=== PATIENT | female | born 1990 | race Hispanic/Latino ===

== ENCOUNTER 2016-12-24 15:18 | Emergency (ER) | payer BC ==
[~2016-12-24] VITALS: Ht 160 cm; Wt 90.9 kg
[~2016-12-24 15:18] MED LIST: AMOXICILLIN/PO500 MG PO; AMOXICILLIN500 M1 OR; AMOXICILLIN500 MG PO; BIAXIN500 MG OR; CLARITIN10 M1 PO; LORTAB 7.5 PO; NO HOME MEDS; PERCOCET 5/325M1 TAB OR; PRENATA5 OR; PREVACID30 M1 OR; PREVACID30 M2 PO; PROTONIX40 MG OR; SOLU-MEDROL125 MG IM; ULTRAM50 M1 PO
[2016-12-24 15:49] LABS: HEMATOCRIT 42.4 % (37.0-47.0); HEMOGLOBIN 13.5 g/dl (12.0-16.0); IMMATURE GRANULOCYTES 0.2 % (0.0-1.0); MEAN CELL VOLUME 84.1 fL CALC (80.0-100.0); MEAN CORPUSCULAR HGB 26.8 pG CALC (26.0-32.0); MEAN CORPUSCULAR HGB CONC 31.8 g/L CALC (32.0-36.0); NEUT# 5.51 thou/uL (2.00-7.15); RED BLOOD COUNT 5.04 mill/uL (4.20-5.60); RED CELL DISTRI WIDTH 13.2 % (11.5-15.5)
[2016-12-24 16:29] LABS: ALBUMIN 4.3 g/dL (3.2-5.0); ALKALINE PHOSPHATASE 92 u/l (38-126); ANION GAP 17 (6-22 (CALC)); BILIRUBIN, TOTAL 0.3 mg/dL (0.0-1.4); BUN 13 mg/dL (7-17); BUN/CREATININE RATIO 19 (12-20 (CALC)); CALCIUM 9.6 mg/dL (8.4-10.2); CARBON DIOXIDE 28 mmol/l (22-30); CHLORIDE 102 mmol/l (95-108); CREATININE 0.7 mg/dL (0.5-1.0); GFR > 60 ML/MIN (>=60 (CALC)); GFR FOR AFR.AMER. > 60 ML/MIN (>=60 (CALC)); GLUCOSE 77 mg/dL (65-105); POTASSIUM 3.9 mmol/l (3.5-5.1); SGOT/AST 17 u/l (14-36); SGPT/ALT 29 u/l (9-52); SODIUM 143 mmol/l (137-146); TOTAL PROTEIN 8.2 g/dL (6.3-8.2)
[2016-12-24] MEDS ORDERED: BENADRYL 50MG C50 MG PO (16:33)
[2016-12-24] MEDS ORDERED: PREDNISONE10 MG PO (16:33)
[2016-12-24] MEDS ORDERED: CIMETIDINE400 M1 PO (16:33)
[2016-12-24 16:51] VITALS: BP 137/82
== END 2016-12-24 17:00 | disposition home or self-care (01) | DRG 918 ==
LOC: ED 15:18
PROVIDERS: Emergency Medicine
DX: T63.441A Toxic effect of venom of bees, accidental (unintentional), initial encounter (principal)

== ENCOUNTER 2017-04-17 03:09 | Emergency (ER) | payer BC ==
[~2017-04-17] VITALS: Ht 160 cm; Wt 118.2 kg
[~2017-04-17 03:09] MED LIST changes: +BENADRYL 50MG C50 MG PO; +CIMETIDINE400 M1 PO; +PREDNISONE10 MG PO
[2017-04-17] MEDS ORDERED: TRAMADOL HYDROC50 MG PO (03:43)
[2017-04-17] MEDS ORDERED: MOTRIN800 MG PO (03:43)
[2017-04-17] MEDS ORDERED: FLEXERIL PO (03:43)
[2017-04-17 04:50] VITALS: BP 126/84
== END 2017-04-17 04:53 | disposition home or self-care (01) | DRG 74 ==
LOC: ED 03:09
DX: M54.12 Radiculopathy, cervical region (principal)

== ENCOUNTER 2017-05-24 14:50 | Emergency (ER) | payer BC ==
[~2017-05-24] VITALS: Ht 160 cm; Wt 115.0 kg
[~2017-05-24 14:50] MED LIST changes: +FLEXERIL PO; +MOTRIN800 MG PO; +TRAMADOL HYDROC50 MG PO
[2017-05-24] MEDS ORDERED: BACTRIM DS1 TAB PO (15:09)
[2017-05-24] MEDS ORDERED: CEPHALEXIN500 M1 PO (15:09)
[2017-05-24 15:38] VITALS: BP 117/79
== END 2017-05-24 15:39 | disposition home or self-care (01) | DRG 603 ==
LOC: ED 14:50
DX: L03.113 Cellulitis of right upper limb (principal); T63.461A Toxic effect of venom of wasps, accidental (unintentional), initial encounter
CPT/HCPCS: J1335

== ENCOUNTER 2017-07-12 11:09 | Emergency (ER) | payer BC, MEDICAID ==
[~2017-07-12] VITALS: Ht 160 cm; Wt 116.0 kg
[~2017-07-12 11:09] MED LIST changes: +BACTRIM DS1 TAB PO; +CEPHALEXIN500 M1 PO
[2017-07-12] MEDS ORDERED: PRENATA7 PO (11:18)
[2017-07-12] MEDS ORDERED: PHENERGAN25 M1 PO (11:18)
[2017-07-12] MEDS ORDERED: FIORICET 50-3001 CAP PO (11:19)
[2017-07-12 12:21] LABS: HEMATOCRIT 38.6 % (37.0-47.0); HEMOGLOBIN 12.7 g/dl (12.0-16.0); IMMATURE GRANULOCYTES 0.4 % (0.0-1.0); MEAN CELL VOLUME 84.1 fL CALC (80.0-100.0); MEAN CORPUSCULAR HGB 27.7 pG CALC (26.0-32.0); MEAN CORPUSCULAR HGB CONC 32.9 g/L CALC (32.0-36.0); NEUT# 7.16 thou/uL (2.00-7.15); RED BLOOD COUNT 4.59 mill/uL (4.20-5.60); URINE BILIRUBIN - DIPSTICK NEGATIVE (NEGATIVE); URINE BLOOD DIPSTICK TRACE-INTACT (NEGATIVE); URINE CLARITY CLEAR; URINE COLOR YELLOW; URINE GLUCOSE - DIPSTICK NEGATIVE (NEGATIVE); URINE KETONE 40 mg/dL (NEGATIVE); URINE LEUK ESTERASE NEGATIVE (NEGATIVE); URINE NITRITE - DIPSTICK NEGATIVE (Negative); URINE PH 5.5 (4.5-8.0); URINE PROTEIN - DIPSTICK NEGATIVE (NEG-TRACE); URINE SPECIFIC GRAVITY >=1.030; URINE UROBILINOGEN - DIPSTICK 0.2 E.U./dL (0.2)
[2017-07-12 12:36] LABS: ALBUMIN 4.1 g/dL (3.2-5.0); ALKALINE PHOSPHATASE 84 u/l (38-126); ANION GAP 14 (6-22 (CALC)); BILIRUBIN, TOTAL 0.6 mg/dL (0.0-1.4); BUN 8 mg/dL (7-17); BUN/CREATININE RATIO 16 (12-20 (CALC)); CALCIUM 9.4 mg/dL (8.4-10.2); CARBON DIOXIDE 25 mmol/l (22-30); CHLORIDE 105 mmol/l (95-108); CREATININE 0.5 mg/dL (0.5-1.0); GFR > 60 ML/MIN (>=60 (CALC)); GFR FOR AFR.AMER. > 60 ML/MIN (>=60 (CALC)); GLUCOSE 89 mg/dL (65-105); SGOT/AST 17 u/l (14-36); SGPT/ALT 27 u/l (9-52); SODIUM 140 mmol/l (137-146); TOTAL PROTEIN 7.4 g/dL (6.3-8.2)
[2017-07-12 13:06] VITALS: BP 120/76
[2017-07-13] MEDS ORDERED: ANTIVERT12.5 MG PO (09:31)
== END 2017-07-12 13:09 | disposition home or self-care (01) | DRG 781 ==
LOC: ED 11:09
PROVIDERS: Emergency Medicine
DX: O26.891 Other specified pregnancy related conditions, first trimester (principal); H53.8 Other visual disturbances; R42 Dizziness and giddiness; R11.10 Vomiting, unspecified; Z3A.09 9 weeks gestation of pregnancy

== ENCOUNTER 2017-09-07 00:58 | Emergency (ER) | payer BC, MEDICAID ==
[~2017-09-07 00:58] MED LIST changes: +ANTIVERT12.5 MG PO; +FIORICET 50-3001 CAP PO; +PHENERGAN25 M1 PO; +PRENATA7 PO
== END 2017-09-07 01:00 | disposition left against medical advice (07) | DRG 951 ==
LOC: ED 00:58 → LWOBS 01:00
DX: Z91.19 Patient's noncompliance with other medical treatment and regimen (principal)

== ENCOUNTER 2019-05-06 18:14 | Emergency (ER) | payer BC, MEDICAID ==
[~2019-05-06] VITALS: Ht 160 cm; Wt 122.0 kg
[2019-05-06] MEDS ORDERED: CLINDAMYCIN HY300 MG PO (19:18)
[2019-05-06] MEDS ORDERED: NORCO1 TA1 PO (19:18)
[2019-05-06 19:30] VITALS: BP 142/76
== END 2019-05-06 19:30 | disposition home or self-care (01) | DRG 159 ==
LOC: ED 18:14
DX: K02.9 Dental caries, unspecified (principal); K04.7 Periapical abscess without sinus; K08.439 Partial loss of teeth due to caries, unspecified class

== ENCOUNTER 2021-03-13 10:15 | Inpatient (IN) | payer BC ==
[~2021-03-13] VITALS: Ht 160 cm; Wt 130.3 kg
[~2021-03-13 10:15] MED LIST changes: +CLINDAMYCIN HY300 MG PO; +NORCO1 TA1 PO
--- NOTE | 2021-03-13 10:30 | NUR ---
PT AMBUALTED TO ROOM WITH STEADY GAIT
[2021-03-13 11:15] LABS: URINE BLOOD DIPSTICK TRACE-INTACT (NEGATIVE); URINE GLUCOSE - DIPSTICK NEGATIVE (NEGATIVE); URINE KETONE NEGATIVE (NEGATIVE); URINE LEUK ESTERASE NEGATIVE (NEGATIVE); URINE PH 5.5 (4.5-8.0); URINE PROTEIN - DIPSTICK 30 mg/dL (NEG-TRACE); URINE SPECIFIC GRAVITY >=1.030
[2021-03-13 11:16] LABS: URINE BILIRUBIN - DIPSTICK NEGATIVE (NEGATIVE); URINE COLOR DK. YELLOW; URINE NITRITE - DIPSTICK NEGATIVE (Negative)
[2021-03-13 11:23] LABS: URINE BACTERIA RARE hpf; URINE RBC 0-2 RBC/hpf (0-5); URINE SQUAMOUS EPITHELIAL CELL MANY EPI/hpf (0-FEW); URINE WBC 0-2 WBC/hpf (0-5)
[2021-03-13 11:32] LABS: HEMATOCRIT 39.8 % (37.0-47.0); HEMOGLOBIN 12.5 g/dl (12.0-16.0); IMMATURE GRANULOCYTES 0.5 % (0.0-5.0); MEAN CELL VOLUME 80.1 fL CALC (80.0-100.0); MEAN CORPUSCULAR HGB 25.2 pG CALC (26.0-32.0); MEAN CORPUSCULAR HGB CONC 31.4 g/dL CAL (32.0-36.0); NEUT# 21.06 thou/uL (2.00-7.15); RED BLOOD COUNT 4.97 mill/uL (4.20-5.60)
[2021-03-13 11:47] LABS: ALBUMIN 4.1 g/dL (3.2-5.0); ALKALINE PHOSPHATASE 131 u/l (38-126); ANION GAP 13 (6-22 (CALC)); BILIRUBIN, TOTAL 1.3 mg/dL (0.0-1.4); BUN 12 mg/dL (7-17); BUN/CREATININE RATIO 18 (12-20 (CALC)); CARBON DIOXIDE 24 mmol/l (22-30); CHLORIDE 101 mmol/l (95-108); CREATININE 0.7 mg/dL (0.5-1.0); GFR > 60 ML/MIN (>=60 (CALC)); GFR FOR AFR.AMER. > 60 ML/MIN (>=60 (CALC)); POTASSIUM 3.4 mmol/l (3.5-5.1); SGOT/AST 19 u/l (14-36); SODIUM 134 mmol/l (137-146); TOTAL PROTEIN 8.4 g/dL (6.3-8.2)
--- NOTE | 2021-03-13 12:30 | NUR ---
PT RESTING, AWAITING RESULTS, PAIN MEDS REQUESTED, MD MADE AWARE
--- NOTE | 2021-03-13 14:45 | NUR ---
PT ARRIVED VIA WC WITH STAFF. IV SITE INTACT., FULLY CLOTHED DIDN'T WANT TO CHANGE INTO GOWN IN THE ER. CONTINUE TO OBSERVE AND MONITOR.
--- NOTE | 2021-03-13 16:40 | NUR ---
PT SBAR REPORT GIVEN TO RN UP ON MS ANGEL, PT WHEELED TO MS, VSS, ALL BELONGINGS WITH PT
[2021-03-13 16:50] VITALS: BP 115/76
--- NOTE | 2021-03-13 17:15 | NUR ---
ASSESSMENT IS COMPLETED: IV SITE IS FREE FROM REDNESS OR EDEMA. HR IS REG,PULSES ARE STRONG X4, ABD IS SOFT WITH REDNESS ON LEFT UPPER SIDE, SMALL PINPOINT MINIMAL DRAINAGE NOTED. CULTURE WAS OBTAINED IN ER. BREATH SOUNDS ARE CLEAR,BILATERALLY.ONLY C/O TENDER TO THE TOUCH ON LEFT SIDE. GAVE A WARM PACK TO SEE IF IT WOULD DRAIN ANY MORE. PT STATED" HEAT FELT BETTER THAN THE COLD COMPRESS THAT WAS TRIED AT HOME".
[2021-03-13 20:00] VITALS: BP 95/64
--- NOTE | 2021-03-13 20:19 | NUR ---
PT MEDICATED ORDERS PROVIDE. PT DENIES ANY OTHER NEEDS FOR COMFORT AT THIS TIME. ABD HAS REDDENED AREA WITH A RAISED BUMP IN THE MIDDLE ON THE RIGHT SIDE OF ABD/RED AREA MARKED WITH PEN. PT DENIES ANY OTHER WOUNDS/SORES OR REDDENED AREAS. NONE NOTED AT THIS TIME. ADVISED PT TO CALL NEEDS ARISE, VERBALIZED UNDERSTANDING.
--- NOTE | 2021-03-13 23:48 | NUR ---
PT UP TO RESTROOM, PT SELF AMBULATED/STEADY GAIT. IVF REPLENISHED AND PT MEDICATED NEW ORDERS PROVIDE.
--- NOTE | 2021-03-13 23:56 | NUR ---
PT MEDICATED FOR PAIN IN ABD WHERE REDNESS/ABCESS AREA IS. PT ASKED FOR GINGERALE/BROTH AND CRACKERS FOR COMFORT, PROVIDED ALL.
[2021-03-14 04:00] VITALS: BP 90/58
--- NOTE | 2021-03-14 04:02 | NUR ---
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 PT REPORTS TYLENOL "REALLY HELPED WITH THE PAIN." DENIES ANY OTHER NEEDS AT THIS TIME. CALL LIGHT AT SIDE AND PT ENCOURAGED TO CALL.
[2021-03-14 05:03] LABS: HEMATOCRIT 35.1 % (37.0-47.0); HEMOGLOBIN 10.9 g/dl (12.0-16.0); MEAN CORPUSCULAR HGB 25.5 pG CALC (26.0-32.0); MEAN CORPUSCULAR HGB CONC 31.1 g/dL CAL (32.0-36.0); RED BLOOD COUNT 4.28 mill/uL (4.20-5.60); RED CELL DISTRI WIDTH 15.2 % (11.5-15.5)
[2021-03-14 05:12] LABS: ANION GAP 11 (6-22 (CALC)); BUN 9 mg/dL (7-17); BUN/CREATININE RATIO 14 (12-20 (CALC)); CARBON DIOXIDE 25 mmol/l (22-30); CHLORIDE 103 mmol/l (95-108); CREATININE 0.6 mg/dL (0.5-1.0); GFR > 60 ML/MIN (>=60 (CALC)); GFR FOR AFR.AMER. > 60 ML/MIN (>=60 (CALC)); POTASSIUM 3.6 mmol/l (3.5-5.1); SODIUM 136 mmol/l (137-146)
[2021-03-14] MEDS ORDERED: METFORMIN500 M2 PO (07:20)
[2021-03-14 07:40] VITALS: BP 119/59
--- NOTE | 2021-03-14 07:40 | NUR ---
ASSESSMENT IS COMPLETED: IV SITE IS FREE FROM REDNESS OR EDEMA. HR IS REG,PULSES ARE STRONG X4, ABD IS SOFT WITH ACTIVE BS. TENDER TO THE TOUCH. BREATH SOUNDS ARE CLEAR BILATERALLY. CONTINUE TO OBSERVE AND MONITOR.
--- NOTE | 2021-03-14 11:37 | NUR ---
S: KAVITA RIVERS is a 31 F who presents with cellulitis. All medications in pt's chart were reviewed. O: VS: BP 119/59 mmHg, P 90 bpm, RR 22 breaths/min, T 97.5 F W 130 kg, HT 63 in, Scr 0.6 g/dL, CrCl >250 ml/min A: Blood culture is pending. Wound culture is pending, preliminary shows S auerus. P: Patient is on Rocephin 2g IV q24h. Vancomycin ordered for pharmacy to dose. Start Vancomycin 1250mg IV Q8. Vancomycin trough is drawn before the 4th dose on 03/15/21 @ 0930. Vancomycin goal trough is between 10-15 mcg/ml. Pharmacy will follow and or advise on antibiotics use as needed.
--- NOTE | 2021-03-14 12:15 | NUR ---
PT HAS BEEN IN THE CHAIR. NO DISTRESS NOTED. THE REDNESS ON ABD IS MUCH LESS. CONTINUE TO OSBERVE AND MONITOR.
[2021-03-14 15:10] VITALS: BP 110/68
--- NOTE | 2021-03-14 16:15 | NUR ---
PT REMAINS IN THE CHAIR. LESS PAIN VOICED. IV SITE IS FREE FROM REDNESS OR EDEMA. CONTINUE TO OBSERVE AND MONITOR.
--- NOTE | 2021-03-14 19:15 | NUR ---
PT SITTING IN RECLINER. ASSESSMENT COMPLETED. SHE REPORTS THAT THE TRAMADOL IS DEFINATELY HELPING WITH THE PAIN 3/10 AT THIS TIME. ABD STILL MARKED AND REDNESS INSIDE THIS AREA. NO OBSERVED DRAINAGE AT THIS TIME FROM RAISED SITE. FRESH ICE AND ICE WATER PROVIDED. DENIES ANY OTHER NEEDS AT THIS TIME. CALL LIGHT AT SIDE AND ENCOURAGED HER TO CALL NEEDS ARISE.
[2021-03-14 19:40] VITALS: BP 109/62
--- NOTE | 2021-03-14 20:51 | NUR ---
pt medicated as orders provide. pt asked me to take a look at her lower right abd area where she thinks she has another hardened tender area. upon assessment I did find a small nodule feeling spot very low on her right abd area that appears red and warm. physician will be notified of this newly developed area. marked area with a marker. this area is also tender to touch.
--- NOTE | 2021-03-14 21:05 | NUR ---
PT AMBULATED OUT INTO HALLWAY TO WATCH FIREWORK DISPLAY.
--- NOTE | 2021-03-14 21:35 | NUR ---
PT AMBULATED BACK TO ROOM WHERE SHE IS LEFT SITTING IN RECLINER. ADVISED HER TO CALL IF ANY NEEDS ARISE, VERBALIZED UNDERSTANDING. CALL LIGHT AT SIDE.
--- NOTE | 2021-03-14 23:07 | NUR ---
PT MEDICATED FOR PAIN 8/10 ON PAIN SCALE. PT ASKED FOR SOMETHING TO EAT/TV DINNER PROVIDED. WARM COMPRESSES WERE ALSO PROVIDED TO REDDENED ABD AREA WITH MOIST HEAT FOR COMFORT.
--- NOTE | 2021-03-15 02:45 | NUR ---
ANTIBIOTIC THERAPY ADMINISTERING AND ICE PROVIDED FOR PT PER REQUEST. PT IS AWAKE AND WATCHING TV WITH LIGHTS ON. DENIES ANY OTHER NEEDS AT THIS TIME.
[2021-03-15 04:22] VITALS: BP 115/74
[2021-03-15 04:24] LABS: HEMATOCRIT 33.7 % (37.0-47.0); HEMOGLOBIN 10.3 g/dl (12.0-16.0); IMMATURE GRANULOCYTES 0.7 % (0.0-5.0); MEAN CORPUSCULAR HGB 25.4 pG CALC (26.0-32.0); MEAN CORPUSCULAR HGB CONC 30.6 g/dL CAL (32.0-36.0); NEUT# 10.11 thou/uL (2.00-7.15); RED BLOOD COUNT 4.06 mill/uL (4.20-5.60)
[2021-03-15 04:42] LABS: ALKALINE PHOSPHATASE 117 u/l (38-126); ANION GAP 12 (6-22 (CALC)); BUN 7 mg/dL (7-17); BUN/CREATININE RATIO 11 (12-20 (CALC)); CARBON DIOXIDE 24 mmol/l (22-30); CHLORIDE 102 mmol/l (95-108); CREATININE 0.7 mg/dL (0.5-1.0); GFR > 60 ML/MIN (>=60 (CALC)); GFR FOR AFR.AMER. > 60 ML/MIN (>=60 (CALC)); POTASSIUM 3.3 mmol/l (3.5-5.1); SGOT/AST 15 u/l (14-36); SODIUM 135 mmol/l (137-146)
[2021-03-15 04:52] LABS: ALBUMIN 3.2 g/dL (3.2-5.0); BILIRUBIN, TOTAL 0.2 mg/dL (0.0-1.4); TOTAL PROTEIN 6.7 g/dL (6.3-8.2)
--- NOTE | 2021-03-15 05:25 | NUR ---
PT IS SLEEPING, I DID NOT DISTURB, NO S/O DISTRESS NOTED. RESP EVEN AND NON-LABORED AT THIS TIME.
--- NOTE | 2021-03-15 07:10 | NUR ---
REPORT RECEIVED FROM EDD ROO
[2021-03-15 08:04] VITALS: BP 119/64
--- NOTE | 2021-03-15 08:05 | NUR ---
PT OOB RESTING IN RECLINER,A&O X3;VS OBTAINED AND ASSESSMENT COMPLETED;PT DENIES ANY CURRENT PAIN OR DISCOMFORTS,PAIN SCALE AND REPORTING EDUCATED;RESPIRATIONS EVEN AND UNLABORED ON RA,CLEAR LUNG SOUNDS;ABDOMEN DISTENDED/SOFT ON PALPATION AND ACTIVE IN ALL 4 QUADRANTS;ABSCESS NOTED TO LEFT ABDOMINAL QUADRANT WITH CELLULITIS NOTED AND ANOTHER SMALL ABSCESS NOTED TO RIGHT LOWER QUADRANTS;STRONG PEDAL PULSES;#20G TO RAC INFUSING NS PER ORDER,SITE APPEARS HEALTHY;PT DENIES ANY ADDITIONAL NEEDS AT THIS TIME AND IS ENCOURAGED TO CALL FOR ASSISTANCE IF NEEDED;FALL PRECAUTIONS IN PLACE WITH CALL LIGHT IN REACH;WILL CONTINUE TO MONITOR
--- NOTE | 2021-03-15 09:39 | NUR ---
AND AT BEDSIDE DISCUSSING POC.
--- NOTE | 2021-03-15 09:50 | NUR ---
CALL PLACED TO AT THIS TIME.SPOKE WITH MD AND ORDER TO MAKE PT NPO AT MIDNIGHT RECEIVED; ALSO NOTIFIED AT THIS TIME.
--- NOTE | 2021-03-15 10:10 | NUR ---
PT REPORTS ABDOMINAL PAIN RATING 8/10 ON THE PAIN SCALE AND REQUESTS PAIN MEDICATION, PT MEDICATED WITH PRN ULTRAM 50MG PO AT THIS TIME;WILL CONTINUE TO MONITOR FOR EFFECTIVENESS
--- NOTE | 2021-03-15 11:00 | NUR ---
PT OOB RESTING IN RECLINER;RESPIRATIONS EVEN AND UNLABORED ON RA;PT REPORTS DECREASE IN ABDOMINAL PAIN AFTER PRN ULTRAM ADMINISTRATION;IV FLUIDS CONTINUE TO RAC WITH EASE;ICE PROVIDED PER REQUEST;PT DENIES ANY ADDITIONAL NEEDS;ENCOURAGED TO CALL FOR ASSISTANCE IF NEEDED;CALL LIGHT IN REACH;WILL CONTINUE TO MONITOR
[2021-03-15 15:03] VITALS: BP 117/69
--- NOTE | 2021-03-15 15:50 | NUR ---
PT OOB RESTING IN RECLINER;RESPIRATIONS EVEN AND UNLABORED ON RA;PT DENIES ANY CURRENT PAIN OR NEEDS;IV SITE PATENT INFUSING NS WITH EASE PER ORDER;ICE PROVIDED PER REQUEST;PT ENCOURAGED TO CALL FOR ASSISTANCE IF NEEDED;CALL LIGHT IN REACH;WILL CONTINUE TO MONITOR
--- NOTE | 2021-03-15 17:05 | NUR ---
PT OOB RESTING IN RECLINER WITH MOTHER AT BEDSIDE;RESPIRATIONS EVEN AND UBLABORED ON RA;PT REPORTS ABDOMINAL PAIN RATING 8/10 ON THE PAIN SCALEAND REQUESTS PRN PAIN MEDICATION,PT MEDICATED WITH PRN ULTRAM 50MG PO AT THIS TIME;PT DENIES ANY ADDITIONAL NEEDS;ENCOURAGED TO CALL FOR ASSISTANCE IF NEEDED;CALL LIGHT IN REACH;WILL CONTINUE TO MONTIOR
[2021-03-15 20:13] VITALS: BP 124/74
--- NOTE | 2021-03-15 20:30 | NUR ---
PT IN ROOM GETTING HERSELF READY TO TAKE A SHOWER. PRIOR TO PT GOING INTO SHOWER ASSESSMENTS WERE COMPLETED, SEE DOCUMENTATION. REDNESS REMAINS TO ABDOMEN, SMALL OPEN AREA NOTED DRAINING YELLOW PUS. COVERED AREA WITH DCD TO REDUCE RISK FOR SPEADING INFECTION. REDNESS HAS NOT EXCEEDED THE MARKED LINES ON THE ABDOMEN. SAFETY PRECAUTIONS IN PLACE, BED IN LOWEST POSITION, CALL LIGHT WITHIN REACH. WILL MONITOR
[2021-03-16] VITALS (10 sets, daily range): BP systolic 103–120; BP diastolic 49–74
--- NOTE | 2021-03-16 01:29 | NUR ---
PT RESTING COMFORTYABLY AT THIS TIME. BREATHING EVEN AND UNLABORED. NO COMPLAINTS VOICED, NO S/S OF DISTRESS. SAFETY PRECAUTIONS IN PLACE. WILL MONITOR
[2021-03-16 05:04] LABS: HEMATOCRIT 32.1 % (37.0-47.0); MEAN CELL VOLUME 81.7 fL CALC (80.0-100.0); MEAN CORPUSCULAR HGB 25.4 pG CALC (26.0-32.0); MEAN CORPUSCULAR HGB CONC 31.2 g/dL CAL (32.0-36.0); RED BLOOD COUNT 3.93 mill/uL (4.20-5.60); RED CELL DISTRI WIDTH 14.9 % (11.5-15.5)
[2021-03-16 05:12] LABS: ANION GAP 12 (6-22 (CALC)); BUN 8 mg/dL (7-17); BUN/CREATININE RATIO 12 (12-20 (CALC)); CARBON DIOXIDE 25 mmol/l (22-30); CHLORIDE 101 mmol/l (95-108); CREATININE 0.7 mg/dL (0.5-1.0); GFR > 60 ML/MIN (>=60 (CALC)); GFR FOR AFR.AMER. > 60 ML/MIN (>=60 (CALC)); POTASSIUM 3.8 mmol/l (3.5-5.1); SODIUM 133 mmol/l (137-146)
--- NOTE | 2021-03-16 05:33 | NUR ---
PT HAS BEEN RESTING QUIETLY THROUGHOUT SHIFT. NO COMPLAINTS VOICED. DRESSING APPLIED TO ABDOMEN FOR DRAINGE REMAINS CDI. ABDOMEN REMAINS WARM AND TENDER TO THE TOUCH. REDNESS HAS NOT EXCEEDED MARKED LINE ON ABDOMEN. SAFETY PRECAUTIONS REMIAN IN PLACE. WILL MONITOR
--- NOTE | 2021-03-16 07:00 | NUR ---
RECIEVED REPORT FROM MIGUEL SCHILLING
--- NOTE | 2021-03-16 07:40 | NUR ---
DR MAC AT BEDSIDE
--- NOTE | 2021-03-16 08:07 | NUR ---
PT RESTING IN SEMI FOWLERS POSITION. PT IS A/O X3. ASSESSMENT AND VITALS COMPLETED. BP 109/74, HR 85, O2 ON ROOM AIR. RESPIRATIONS ARE EVEN AND UNLABORED WITH NO DISTRESS NOTED. LUNG SOUNDS ARE DIMINISHED. BOWEL SOUNDS ARE ACTIVE. HEART RHYTHM NORMAL. RADIAL AND PEDAL PULSES STRONG. #20G RAC INFUSING WITH IVF PER ORDER, SITE REMAINS HEALTHY AND PATENT. WOUND NOTED TO LLQ OF ABD. PT COMPLAINS OF 9/10 PAIN, PT TO BE MEDICATED PER EMAR. PT DENIES OF ANY ADDITIONAL NEEDS AT THIS TIME. ALL SAFETY PERCAUTIONS ARE IN PLACE WITH CALL LIGHT IN REACH. WILL CONTINUE TO MONITOR.
--- NOTE | 2021-03-16 08:14 | NUR ---
PRELIMINARY BLOOD CULTURE RESULTS CALLED TO [facility], NO NEW ORDERS AT THIS TIME.
--- NOTE | 2021-03-16 08:40 | NUR ---
DR LEAL AT BEDSIDE
--- NOTE | 2021-03-16 09:20 | NUR ---
OBTAINED CONSENT FOR I&D OF GUERRERO DENNIS. PT THEN MEDICATED PER EMAR FOR PAIN. PT DENIES OF ANY NEEDS AT THIS TIME. ALL SAFTEY PRECAUTIONS ARE IN PLACE WITH CALL LIGHT IN REACH. WILL CONTINUE TO MONITOR
--- NOTE | 2021-03-16 10:00 | NUR ---
PT TRANSFERED TO OR VIA STRETCHER IN STABLE CONDITION ACCOMPAINED BY EDD SCHILLING
--- NOTE | 2021-03-16 12:37 | NUR ---
PT ARRIVED BACK TO [facility] ROOM 274 VIA STRETCHER IN STABLE CONDITION. PT AMBULATED WITH BATHROOM WITH STEADY GAIT. PT ASSISTED BACK INTO BED. PT IS A/O X3. RESPIRATIONS ARE EVEN AND UNLABORED ON ROOM AIR. #20G RAC INFUSING WITH IVF PER ORDER, SITE REMAINS HEALTHY AND PATENT. DRESSING TO LLQ AND LOWER MIDDLE ABD REMAINS IN PLACE. CLEAR LIQUID DIET ORDER. PT STATES PAIN IN 5/10 AT THIS TIME. PT DENIES OF ANY NEEDS AT THIS TIME. ALL SAFETY PRECAUTIONS ARE IN PLACE WITH CALL LIGHT . WILL CONTINUE TO MONITOR.
--- NOTE | 2021-03-16 15:48 | NUR ---
PT RESTING IN SEMI FOWLERS POSITION. RESPIRATIONS ARE EVEN AND UNLABORED WITH NO DISTRESS NOTED. DRESSING TO ABD CDI AT THIS TIME. #20G RAC INFUSING WITH IVF PER ORDER, SITE REMAINS HEALTHY AND PATENT. PT DENIES OF ANY NEEDS AT THIS TIME. ALL SAFETY PRECAUTIONS ARE IN PLACE WITH CALL LIGHT IN REACH. WILL CONTINUE TO MONITOR.
--- NOTE | 2021-03-16 17:50 | NUR ---
PT MEDICATED FOR 8/10 PAIN. DRESSING CHANGE TO BE COMPLETED.
--- NOTE | 2021-03-16 19:27 | NUR ---
REPORT GIVEN BY DELVIN. PATIENT RESTING IN BED WATCHING TV. ALERT AND ORIENTED. RESP EVEN AND UNLABORED. NO S/S OF DISTRESS NOTED. FALL AND SAFTEY PRECAUTIONS IN PLACE. DRESSING CURRENTLY CDI WILL CHANGE PRN. IV INFUSING KVO FLUIDS. PLAN OF CARE DISCUSSED. PATIENT INFORMED TO CALL WITH ANY QUESTIONS OR CONCERNS.
--- NOTE | 2021-03-16 23:33 | NUR ---
PATIENT RESTING IN BED. RESP EVEN AND UNLABORED. NO S/S OF DISTRESS NOTED. FALL AND SAFTEY PRECAUTIONS IN PLACE.
--- NOTE | 2021-03-17 03:51 | NUR ---
PATIENT AWAKE WATCHING TV. RESP EVEN AND UNLABORED. DRESSING CDI. FALL AND SAFTEY PRECAUTIONS IN PLACE. NO S/S OF DISTRESS NOTED
[2021-03-17 04:00] VITALS: BP 122/69
[2021-03-17 04:58] LABS: HEMOGLOBIN 10.2 g/dl (12.0-16.0); MEAN CELL VOLUME 82.3 fL CALC (80.0-100.0); MEAN CORPUSCULAR HGB 25.4 pG CALC (26.0-32.0); MEAN CORPUSCULAR HGB CONC 30.9 g/dL CAL (32.0-36.0); RED BLOOD COUNT 4.01 mill/uL (4.20-5.60); RED CELL DISTRI WIDTH 14.8 % (11.5-15.5)
[2021-03-17 05:09] LABS: ANION GAP 13 (6-22 (CALC)); BUN 6 mg/dL (7-17); BUN/CREATININE RATIO 10 (12-20 (CALC)); CARBON DIOXIDE 24 mmol/l (22-30); CHLORIDE 102 mmol/l (95-108); CREATININE 0.5 mg/dL (0.5-1.0); GFR > 60 ML/MIN (>=60 (CALC)); GFR FOR AFR.AMER. > 60 ML/MIN (>=60 (CALC)); POTASSIUM 3.9 mmol/l (3.5-5.1); SODIUM 134 mmol/l (137-146)
--- NOTE | 2021-03-17 06:11 | NUR ---
ABD DRESSING DCI X 2
[2021-03-17 07:35] VITALS: BP 113/61
--- NOTE | 2021-03-17 07:53 | NUR ---
FINAL BLOOD CX SHOWS S EPI. REPORTED TO [facility]I. NO NEW ORDERS RECEIVED.
--- NOTE | 2021-03-17 10:22 | NUR ---
PT AWAKE, ALERT, ORIENTED X 3. LUNGS CLEAR, RA. ABDOMEN WITH TWO SITES WHERE ABSCESSES WERE DRAINED YESTERDAY, APPEAR CDI. PT PROVIDED PAIN MED, TRAMADOL PROVIDED. PT AMBULATORY IN ROOM WITH STEADY GAIT.
[2021-03-17 15:32] VITALS: BP 117/57
--- NOTE | 2021-03-17 15:37 | NUR ---
PT SEENBY DR MAC TODAY, WHO REMOVED OLD DRESSING AND REPLACED PACKING IN BOTH WOUNDS. THIS WAS COVERED BY ABDs APPROPRIATELY. PT WITH LESS PAIN TODAY THAN YESTERDAY, BUT STILL REQUIRES PAIN MEDS AT INTERVALS.
[2021-03-17 19:00] VITALS: BP 130/66
--- NOTE | 2021-03-17 19:27 | NUR ---
DRESSING TO ABD CDI. PT REPORTS PAIN 8/10 ON PAIN SCALE. WILL MEDICATE ORDERS PROVIDE.
--- NOTE | 2021-03-17 20:00 | NUR ---
PT MEDICATED ORDERS PROVIDE AND ASSESSMENT COMPLETED AT THIS TIME. ABD HAS HYPO ACTIVE BOWEL SOUNDS WITH TENDERNESS THROUGHOUT DUE TO ABCESS/INCISION LOCATIONS. PT REPORTS PASSING FLATUS AND HAVINTG BM THIS DAY. IVF RUNNING KVO TO LAC/SITE APPEARS HEALTHY. PT ALSO MEDICATED FOR PAIN AT THIS TIME, SHE REPORTS THAT THE ULTRAM HELPED "A LITTLE."
--- NOTE | 2021-03-18 00:22 | NUR ---
PT ASKED EDGE ROLLER FOR SOMETHING FOR PAIN. UPON MY ENTERING THE ROOM HER HEAD WAS BACK WITH EYES CLOSED AND SOUNDS OF SOFT SNORING COMING FROM THE PT. SHE AWOKE PRIOR TO MY BEING ABLE TO LEAVE THE ROOM STATING SHE WAS IN 9/10 PAIN. SHE WAS MEDICATED WITH LORTAB AT THIS TIME. ICEWATER REPLENISHED ALSO AT THIS TIME.
[2021-03-18 04:15] VITALS: BP 121/52
--- NOTE | 2021-03-18 04:29 | NUR ---
V/S ASSESSED, PT WAS SLEEPING WHEN WE ENTERED THE ROOM. DENIES ANY NEEDS AT THIS TIME. CALL LIGHT IS AT SIDE.
[2021-03-18 05:54] LABS: HEMATOCRIT 34.1 % (37.0-47.0); HEMOGLOBIN 10.6 g/dl (12.0-16.0); MEAN CORPUSCULAR HGB 25.5 pG CALC (26.0-32.0); MEAN CORPUSCULAR HGB CONC 31.1 g/dL CAL (32.0-36.0); RED BLOOD COUNT 4.16 mill/uL (4.20-5.60); RED CELL DISTRI WIDTH 14.7 % (11.5-15.5)
--- NOTE | 2021-03-18 06:03 | NUR ---
PT SLEEPING, SHE AWOKE TO MY TOUCH. DRESSING TO ABD X2 CDI. PT DENIES ANY NEEDS AT THIS TIME.
--- NOTE | 2021-03-18 09:08 | NUR ---
REPORT RECEIVED FROM MIGUEL ORTIZ
--- NOTE | 2021-03-18 10:00 | NUR ---
PT OOB RESTING IN RECLINER,A&O X3;VS OBTAINED AND ASSESSMENT COMPLETED;PT DENIES ANY CURRENT PAIN OR DISCOMFORTS,PAIN SCALE AND REPORTING EDUCATED;RESPIRATIONS EVEN AND UNLABORED ON RA,CLEAR LUNG SOUNDS;ABDOMEN DISTENDED/SOFT ON PALPATION AND ACTIVE IN ALL 4 QUADRANTS;PT POD #2 I&D OF X2 ABDOMINAL ABCESS;DRESSINGS TO ABDOMEN CDI;STRONG PEDAL PULSES;#20G TO LAC INFUSING NS @ 10ML/HR,SITE APPEARS HEALTHY AND ABX HUNG AT THIS TIME;PT DENIES ANY ADDITIONAL NEEDS;ENCOURAGED TO CALL FOR ASSISTANCE IF NEEDED;FALL PRECAUTIONS IN PLACE WITH CALL LIGHT IN REACH;WILL CONTINUE TO MONITOR
--- NOTE | 2021-03-18 10:04 | NUR ---
AT BEDSIDE DISCUSSING POC.
[2021-03-18 10:17] VITALS: BP 120/67
[2021-03-18] MEDS ORDERED: DOXYCYCL HYC100 MG PO (11:45)
[2021-03-18] MEDS ORDERED: TRAMADOL HCL50 MG PO (11:48)
--- NOTE | 2021-03-18 12:45 | NUR ---
PT OOB RESTING IN RECLINER;RESPIRATIONS EVEN AND UNLABORED ON RA;PT DENIES ANY CURRENT PAIN OR NEEDS;DRESSING CHANGED AT THIS TIME AND PT TOLERATED WELL;IV SITE REMAINS PATENT;PT EDUCATED ON PLANS TO D/C HOME AND VERBALIZES UNDERSTANDING;ENCOURAGED TO CALL FOR ASSISTANCE IF NEEDED;CALL LIGHT IN REACH;WILL CONTINUE TO MONITOR
--- NOTE | 2021-03-18 13:50 | NUR ---
PT MEDICATED WITH PRN LORTAB 5/325MG PO FOR ABDOMINAL PAIN RATING 8/10 ON THE PAIN SCALE;ALL DISCHARGE INSTRUCTIONS PROVIDED AT THIS TIME;PT INSTRUCTED TO F/U WITH PCP & WOUND CARE PER ORDER;DAILY DRESSING CHANGES PER WOUND CARE ORDERS, TAKE PAIN MDICATION NEEDED AND RX FOR ULTRAM PROVIDED AND COMPLETE COURSE OF ABX;PT DENIES ANY ADDITIONAL QUESTIONS OR NEEDS;IV SITE REMOVED WITH CATHETER INTACT;WORK RELEASE PROVIDED FOR PT TO RETURN TO WORK 03/22/21 PER ANRP;WHEELCHAIR TO BE PROVIDED FOR D/C HOME;MOTHER TO TRANSPORT PT HOME;WILL CONTINUE TO MONITOR
--- NOTE | 2021-03-18 15:15 | NUR ---
Discharge instructions given. Patient verbalizes understanding of same. Discharged in stable condition via Wheelchair to Home with family. All belongings sent with pt. PT TRANSPORTED TO [facility] VIA WHEELCHAIR ACCOMPANIED BY ALLAN SANTOS AND MOTHER;ALL BELONGINGS LEFT WITH PT.MOTHER TO TRANSPORT PT HOME.
== END 2021-03-18 15:15 | disposition home or self-care (01) | DRG 580 ==
LOC: ED 10:15 → MS2 13:53
PROVIDERS: Emergency Medicine; Nurse Practitioner; Nurse Practitioner Family; ADMIT Internal Medicine; ATTEND Internal Medicine
PROC: 0J980ZZ Drainage of Abdomen Subcutaneous Tissue and Fascia, Open Approach (ICD-10-PCS; principal; 2021-03-16)
DX: L02.211 Cutaneous abscess of abdominal wall (principal); Z68.43 Body mass index [BMI] 50.0-59.9, adult; L03.311 Cellulitis of abdominal wall; E87.6 Hypokalemia; E11.9 Type 2 diabetes mellitus without complications; E66.9 Obesity, unspecified; E28.2 Polycystic ovarian syndrome; B95.61 Methicillin susceptible Staphylococcus aureus infection as the cause of diseases classified elsewhere; Z79.84 Long term (current) use of oral hypoglycemic drugs; Z91.030 Bee allergy status; Z20.822 Contact with and (suspected) exposure to COVID-19
CPT/HCPCS: J0131; J1650; J3370; Q9967

== ENCOUNTER 2021-03-20 09:52 | Emergency (ER) | payer BC ==
[~2021-03-20] VITALS: Ht 160 cm; Wt 130.4 kg
[~2021-03-20 09:52] MED LIST changes: +DOXYCYCL HYC100 MG PO; +METFORMIN500 M2 PO; +TRAMADOL HCL50 MG PO
[2021-03-20 10:56] VITALS: BP 114/66
== END 2021-03-20 11:00 | disposition home or self-care (01) | DRG 951 ==
LOC: ED 09:52
DX: Z48.01 Encounter for change or removal of surgical wound dressing (principal)

== ENCOUNTER 2021-07-16 07:55 | Emergency (ER) | payer BC ==
[~2021-07-16] VITALS: Ht 160 cm; Wt 115.0 kg
[2021-07-16] MEDS ORDERED: ZPAK PO (08:32)
[2021-07-16 08:35] VITALS: BP 156/96
== END 2021-07-16 08:38 | disposition home or self-care (01) | DRG 153 ==
LOC: ED 07:55
DX: J06.9 Acute upper respiratory infection, unspecified (principal); Z68.41 Body mass index [BMI] 40.0-44.9, adult; E66.9 Obesity, unspecified; E11.9 Type 2 diabetes mellitus without complications; Z79.84 Long term (current) use of oral hypoglycemic drugs; Z20.822 Contact with and (suspected) exposure to COVID-19

== ENCOUNTER 2021-08-08 13:33 | Emergency (ER) | payer BC ==
[~2021-08-08] VITALS: Ht 160 cm; Wt 127.0 kg
[~2021-08-08 13:33] MED LIST changes: +ZPAK PO
[2021-08-08] MEDS ORDERED: TORADOL PO (16:50)
[2021-08-08 17:07] VITALS: BP 126/88
== END 2021-08-08 17:07 | disposition home or self-care (01) | DRG 563 ==
LOC: ED 13:33
DX: S39.012A Strain of muscle, fascia and tendon of lower back, initial encounter (principal); E11.9 Type 2 diabetes mellitus without complications; X50.0XXA Overexertion from strenuous movement or load, initial encounter; Z79.84 Long term (current) use of oral hypoglycemic drugs

== ENCOUNTER 2022-04-25 07:37 | Emergency (ER) | payer BC ==
[~2022-04-25] VITALS: Ht 162.6 cm; Wt 128.0 kg
[~2022-04-25 07:37] MED LIST changes: +CEPHALEXIN500 MG PO; +FERROUS SULF325 M2 PO; +TOPIRAMATE ER25 MG; +TORADOL PO
[2022-04-25 07:44] VITALS: BP 138/115
[2022-04-25 08:00] VITALS: BP 119/85
[2022-04-25] MEDS ORDERED: BACTRIM DS1 TAB PO (08:25)
[2022-04-25] MEDS ORDERED: CEPHALEXIN500 M1 PO (08:25)
[2022-04-25 08:40] VITALS: BP 119/85
== END 2022-04-25 09:15 | disposition home or self-care (01) | DRG 603 ==
LOC: ED 07:37
PROC: 0H9KXZZ Drainage of Right Lower Leg Skin, External Approach (ICD-10-PCS; principal; 2022-04-25)
DX: L02.415 Cutaneous abscess of right lower limb (principal); E11.9 Type 2 diabetes mellitus without complications; Z79.84 Long term (current) use of oral hypoglycemic drugs

== ENCOUNTER 2023-10-09 02:01 | Emergency (ER) | payer SELFPAY ==
[~2023-10-09] VITALS: Ht 162.6 cm; Wt 100.0 kg
[2023-10-09 03:44] VITALS: BP 149/102
== END 2023-10-09 03:49 | disposition home or self-care (01) | DRG 153 ==
LOC: ED 02:01
DX: J11.1 Influenza due to unidentified influenza virus with other respiratory manifestations (principal); E11.9 Type 2 diabetes mellitus without complications; Z20.822 Contact with and (suspected) exposure to COVID-19